=== PATIENT | female | born 1990 | race Caucasian/White ===

== ENCOUNTER → 2017-11-17 | Outpatient (CLI) | payer OTHER ==
[~2017-11-17] MED LIST: CLARITIN10 MG PO; CLINDAMYCIN HC300 MG PO; CORTISPORIN SUS10 ML OT; FLUVOXAMINE MA100 MG PO; MIXED AMPHETAMI15 M1 PO; MYORISAN30 MG PO; ZITHROMAX Z PA250 MG PO
[2017-11-17 12:17] LABS: BASO % 0.5 % (0.0-1.0); EOS # 0.2 10*3/uL (0.0-0.4); EOS % 2.3 % (1.0-4.0); HEMATOCRIT 42.5 % (37.0-47.0); HEMOGLOBIN 14.7 g/dl (12.0-16.0); LYMPH # 3.5 10*3/uL (1.3-4.4); LYMPH % 43.2 % (27.0-41.0); MEAN CELL VOLUME 89.3 fl (81.0-99.0); MEAN CORPUSCULAR HGB 30.9 pg (27.0-31.0); MEAN CORPUSCULAR HGB CONC 34.6 g/dl (33.0-37.0); MEAN PLATELET VOLUME 10.7 fl (9.6-12.3); MONO % 11.6 % (3.0-9.0); NEUT # 3.5 10*3/uL (2.3-7.9); NEUT % 42.3 % (47.0-73.0); PLATELET COUNT AUTOMATED 274 10*3/uL (130-400); RED BLOOD COUNT 4.76 10*6/uL (4.10-5.10); RED CELL DISTRI WIDTH 12.5 % (0-14.5); WHITE BLOOD COUNT 8.2 10*3/uL (4.8-10.8)
[2017-11-17 13:07] LABS: ALBUMIN 4.1 gm/dl (3.1-4.5); ALKALINE PHOSPHATASE 58 U/L (45-117); B-hCG (QUALITATIVE) NEGATIVE (NEGATIVE); BILIRUBIN, DIRECT < 0.1 mg/dL (0.0-0.2); BUN 10 mg/dl (7-24); CHLORIDE 108 mmol/L (98-107); CHOLESTEROL 165 mg/dL (<200); CREATININE 0.87 mg/dL (0.55-1.02); HDL CHOLESTEROL 57 mg/dl (40-60); LDL CHOLESTEROL 88 mg/dL (9-159); POTASSIUM 4.3 mmol/L (3.5-5.1); SGOT/AST 17 IU/L (3-35); SGPT/ALT 23 U/L (12-78); SODIUM 141 mmol/L (136-145); TOTAL PROTEIN 7.3 gm/dL (6.4-8.2); TRIGLYCERIDES 99 mg/dl (<150); VLDL CHOLESTEROL 20 mg/dL (6-40)
[2017-11-17 13:45] LABS: VITAMIN D, 25-HYDROXY 47.2 ng/mL (30-100)
== END | disposition home or self-care (01) ==
LOC: LAB 11:55
PROVIDERS: Nurse Practitioner Family; Specialist
DX: Z51.81 Encounter for therapeutic drug level monitoring (principal); F41.9 Anxiety disorder, unspecified; F98.8 Other specified behavioral and emotional disorders with onset usually occurring in childhood and adolescence; F42.9 Obsessive-compulsive disorder, unspecified; F17.210 Nicotine dependence, cigarettes, uncomplicated; L74.9 Eccrine sweat disorder, unspecified; E55.9 Vitamin D deficiency, unspecified; Z79.899 Other long term (current) drug therapy

== ENCOUNTER → 2017-12-20 | Outpatient (CLI) | payer OTHER ==
[2017-12-20 11:40] LABS: ALBUMIN 3.9 gm/dl (3.1-4.5); BILIRUBIN, DIRECT < 0.1 mg/dL (0.0-0.2); CHOLESTEROL 193 mg/dL (<200); SGOT/AST 17 IU/L (3-35); SGPT/ALT 23 U/L (12-78); TRIGLYCERIDES 125 mg/dl (<150)
[2017-12-20 11:42] LABS: ALKALINE PHOSPHATASE 58 U/L (45-117); B-hCG (QUALITATIVE) NEGATIVE (NEGATIVE)
== END | disposition home or self-care (01) ==
LOC: LAB 10:22
PROVIDERS: Specialist
DX: Z51.81 Encounter for therapeutic drug level monitoring (principal); Z79.899 Other long term (current) drug therapy

== ENCOUNTER 2018-01-12 16:40 | Emergency (ER) | payer OTHER ==
[~2018-01-12] VITALS: Ht 160 cm; Wt 68.0 kg
[~2018-01-12 16:40] MED LIST changes: -CLINDAMYCIN HC300 MG PO; -CORTISPORIN SUS10 ML OT; -FLUVOXAMINE MA100 MG PO; -MIXED AMPHETAMI15 M1 PO; -MYORISAN30 MG PO
[2018-01-12] MEDS ORDERED: FLUVOXAMINE MA100 MG PO (16:43)
[2018-01-12] MEDS ORDERED: MIXED AMPHETAMI15 M1 PO (16:43)
[2018-01-12] MEDS ORDERED: MYORISAN30 MG PO (16:44)
[2018-01-12 17:08] LABS: BASO % 0.4 % (0.0-1.0); EOS # 0.1 10*3/uL (0.0-0.4); EOS % 0.9 % (1.0-4.0); HEMATOCRIT 43.7 % (37.0-47.0); HEMOGLOBIN 14.9 g/dl (12.0-16.0); LYMPH # 2.9 10*3/uL (1.3-4.4); LYMPH % 30.7 % (27.0-41.0); MEAN CELL VOLUME 90.3 fl (81.0-99.0); MEAN CORPUSCULAR HGB 30.8 pg (27.0-31.0); MEAN CORPUSCULAR HGB CONC 34.1 g/dl (33.0-37.0); MONO # 0.5 10*3/uL (0.1-1.0); MONO % 5.2 % (3.0-9.0); NEUT # 5.9 10*3/uL (2.3-7.9); NEUT % 62.5 % (47.0-73.0); PLATELET COUNT AUTOMATED 239 10*3/uL (130-400); RED BLOOD COUNT 4.84 10*6/uL (4.10-5.10); RED CELL DISTRI WIDTH 12.5 % (0-14.5); WHITE BLOOD COUNT 9.5 10*3/uL (4.8-10.8)
[2018-01-12 17:24] LABS: BUN 8 mg/dl (7-24); CHLORIDE 105 mmol/L (98-107); CREATININE 0.79 mg/dL (0.55-1.02); POTASSIUM 3.6 mmol/L (3.5-5.1); SGOT/AST 29 IU/L (3-35); SGPT/ALT 28 U/L (12-78); SODIUM 138 mmol/L (136-145); TOTAL PROTEIN 7.2 gm/dL (6.4-8.2)
[2018-01-12 17:26] LABS: ALKALINE PHOSPHATASE 64 U/L (45-117)
[2018-01-12] MEDS ORDERED: CLINDAMYCIN HC300 MG PO (17:47)
[2018-01-12] MEDS ORDERED: CORTISPORIN SUS10 ML OT (17:47)
== END 2018-01-12 17:50 | disposition home or self-care (01) ==
LOC: ED 16:40
PROVIDERS: Nurse Practitioner Family
DX: L70.0 Acne vulgaris (principal); H60.92 Unspecified otitis externa, left ear; Z79.899 Other long term (current) drug therapy

== ENCOUNTER → 2018-01-16 | Outpatient (CLI) | payer OTHER ==
[~2018-01-16] MED LIST changes: +CLINDAMYCIN HC300 MG PO; +CORTISPORIN SUS10 ML OT; +FLUVOXAMINE MA100 MG PO; +MIXED AMPHETAMI15 M1 PO; +MYORISAN30 MG PO
[2018-01-16 11:22] LABS: ALBUMIN 3.9 gm/dl (3.1-4.5); ALKALINE PHOSPHATASE 59 U/L (45-117); BILIRUBIN, DIRECT < 0.1 mg/dL (0.0-0.2); CHOLESTEROL 197 mg/dL (<200); SGOT/AST 20 IU/L (3-35); SGPT/ALT 25 U/L (12-78); TOTAL PROTEIN 7.2 gm/dL (6.4-8.2); TRIGLYCERIDES 149 mg/dl (<150)
[2018-01-16 11:24] LABS: B-hCG (QUALITATIVE) NEGATIVE (NEGATIVE)
== END | disposition home or self-care (01) ==
LOC: LAB 09:51
PROVIDERS: Specialist
DX: Z51.81 Encounter for therapeutic drug level monitoring (principal); Z79.899 Other long term (current) drug therapy

== ENCOUNTER → 2018-02-13 | Outpatient (CLI) | payer OTHER ==
[2018-02-13 09:54] LABS: ALBUMIN 3.9 gm/dl (3.1-4.5); ALKALINE PHOSPHATASE 55 U/L (45-117); BILIRUBIN, DIRECT < 0.1 mg/dL (0.0-0.2); CHOLESTEROL 184 mg/dL (<200); SGOT/AST 19 IU/L (3-35); SGPT/ALT 32 U/L (12-78); TOTAL PROTEIN 6.9 gm/dL (6.4-8.2); TRIGLYCERIDES 97 mg/dl (<150)
[2018-02-13 10:44] LABS: BETA-HCG, QUANT < 1.0 mIU/mL (1-3)
== END | disposition home or self-care (01) ==
LOC: LAB 09:01
PROVIDERS: Specialist
DX: Z79.899 Other long term (current) drug therapy (principal)

== ENCOUNTER → 2018-03-30 | Outpatient (CLI) | payer OTHER ==
[2018-03-30 16:34] LABS: BILIRUBIN, DIRECT < 0.1 mg/dL (0.0-0.2); CHOLESTEROL 209 mg/dL (<200); SGOT/AST 18 IU/L (3-35); SGPT/ALT 28 U/L (12-78); TOTAL PROTEIN 7.3 gm/dL (6.4-8.2); TRIGLYCERIDES 69 mg/dl (<150); VLDL CHOLESTEROL 14 mg/dL (6-40)
[2018-03-30 16:37] LABS: ALKALINE PHOSPHATASE 65 U/L (45-117); B-hCG (QUALITATIVE) NEGATIVE (NEGATIVE); HDL CHOLESTEROL 52 mg/dl (40-60); LDL CHOLESTEROL 143 mg/dL (9-159)
== END | disposition home or self-care (01) ==
LOC: LAB 15:40
PROVIDERS: Specialist
DX: L70.0 Acne vulgaris (principal)

== ENCOUNTER → 2018-08-03 | Outpatient (CLI) | payer OTHER ==
[~2018-08-03] MED LIST changes: +ALLEGRA-D 24 H1 EACH PO; +HYDROCREAM28.4 GM T
== END | disposition home or self-care (01) ==
LOC: LAB 09:29
PROVIDERS: Nurse Practitioner Family
DX: R10.84 Generalized abdominal pain (principal)

== ENCOUNTER → 2018-08-13 | Outpatient (CLI) | payer OTHER | END | disposition home or self-care (01) | LOC: RAD 10:30 | DX: K59.00 Constipation, unspecified (principal); R10.84 Generalized abdominal pain ==

== ENCOUNTER 2018-10-04 17:13 | Emergency (ER) | payer OTHER ==
[~2018-10-04] VITALS: Ht 160 cm; Wt 72.6 kg
[~2018-10-04 17:13] MED LIST changes: -ALLEGRA-D 24 H1 EACH PO; -HYDROCREAM28.4 GM T
[2018-10-04 18:06] LABS: BASO # 0.1 10*3/uL (0.0-0.1); BASO % 0.5 % (0.0-1.0); EOS # 0.1 10*3/uL (0.0-0.4); EOS % 1.1 % (1.0-4.0); HEMATOCRIT 40.7 % (37.0-47.0); HEMOGLOBIN 13.8 g/dl (12.0-16.0); LYMPH # 3.1 10*3/uL (1.3-4.4); LYMPH % 30.6 % (27.0-41.0); MEAN CELL VOLUME 90.8 fl (81.0-99.0); MEAN CORPUSCULAR HGB 30.8 pg (27.0-31.0); MEAN CORPUSCULAR HGB CONC 33.9 g/dl (33.0-37.0); MEAN PLATELET VOLUME 10.7 fl (9.6-12.3); MONO # 0.8 10*3/uL (0.1-1.0); MONO % 7.8 % (3.0-9.0); NEUT % 59.8 % (47.0-73.0); PLATELET COUNT AUTOMATED 265 10*3/uL (130-400); RED BLOOD COUNT 4.48 10*6/uL (4.10-5.10); RED CELL DISTRI WIDTH 12.5 % (0-14.5)
[2018-10-04 18:21] LABS: ALBUMIN 3.9 gm/dl (3.1-4.5); ALKALINE PHOSPHATASE 58 U/L (45-117); BUN 11 mg/dl (7-24); CHLORIDE 109 mmol/L (98-107); CREATININE 0.91 mg/dL (0.55-1.02); SGOT/AST 19 IU/L (3-35); SGPT/ALT 22 U/L (12-78); SODIUM 142 mmol/L (136-145); TOTAL PROTEIN 6.8 gm/dL (6.4-8.2)
[2018-10-04] MEDS ORDERED: HYDROCREAM28.4 GM T (18:43)
[2018-10-04] MEDS ORDERED: ALLEGRA-D 24 H1 EACH PO (18:43)
== END 2018-10-04 19:10 | disposition home or self-care (01) ==
LOC: ED 17:13
PROVIDERS: Physician Assistant
DX: L30.9 Dermatitis, unspecified (principal); L98.9 Disorder of the skin and subcutaneous tissue, unspecified; R51 Headache; F17.200 Nicotine dependence, unspecified, uncomplicated; Z79.899 Other long term (current) drug therapy

== ENCOUNTER → 2020-11-03 | Outpatient (CLI) | payer OTHER ==
[~2020-11-03] MED LIST changes: +ALLEGRA-D 24 H1 EACH PO; +HYDROCREAM28.4 GM T
== END | disposition home or self-care (01) ==
LOC: US 16:30
PROVIDERS: ATTEND Podiatrist
DX: M79.604 Pain in right leg (principal)

== ENCOUNTER → 2021-03-09 | Outpatient (CLI) | payer OTHER ==
[2021-03-09 09:32] LABS: BASO # 0.1 10*3/uL (0.0-0.1); BASO % 0.8 % (0.0-1.0); EOS # 0.1 10*3/uL (0.0-0.4); EOS % 0.9 % (1.0-4.0); LYMPH # 3.1 10*3/uL (1.3-4.4); LYMPH % 29.7 % (27.0-41.0); MONO # 0.8 10*3/uL (0.1-1.0); MONO % 7.6 % (3.0-9.0); NEUT # 6.3 10*3/uL (2.3-7.9); NEUT % 60.8 % (47.0-73.0); WHITE BLOOD COUNT 10.3 10*3/uL (4.8-10.8)
[2021-03-09 09:49] LABS: CHOLESTEROL 191 mg/dL (<200); LDL CHOLESTEROL 118 mg/dL (9-159); TRIGLYCERIDES 108 mg/dl (<150)
== END ==
LOC: LAB 08:50
PROVIDERS: ATTEND Psychiatry & Neurology Psychiatry
DX: Z51.81 Encounter for therapeutic drug level monitoring (principal); Z79.899 Other long term (current) drug therapy

== ENCOUNTER → 2022-04-13 | Outpatient (CLI) | payer OTHER ==
[2022-04-13 08:50] LABS: CHOLESTEROL 196 mg/dL (<200); LDL CHOLESTEROL 118 mg/dL (9-159); TRIGLYCERIDES 110 mg/dl (<150)
== END | disposition home or self-care (01) ==
LOC: LAB 08:13
PROVIDERS: ATTEND Psychiatry & Neurology Psychiatry
DX: Z51.81 Encounter for therapeutic drug level monitoring (principal); Z79.899 Other long term (current) drug therapy